=== PATIENT | female | born 1995 | race American Indian/Alaskan Native ===

== ENCOUNTER 2016-07-26 18:30 | Emergency (ER) | payer MEDICAID ==
[2016-07-27 01:42] VITALS: BP 107/76
[2016-07-27] MEDS: PEPCID PO ONE (02:44)
[2016-07-27] MEDS: ATARAX PO ONE (03:45)
--- NOTE | 2016-07-27 03:49 | Emergency Department Report ---
HPI - General Chief Complaint: Allergic Reaction Time Seen by Provider: 07/27/16 02:19 - HPI HPI: 21-year-old female presents today with face, hands, feet swelling since last night. Patient thinks she is allergic to the pepper she had last night. Positive for pruritus. Also complaining of a rash forming on her face spreading to her trunk 2 average. Denies difficulty in breathing or difficulty swallowing. Positive for history of allergic reaction to Benadryl and penicillin. Denies fever, chills, nausea, vomiting, chest pain, shortness of breath, abdominal pain. ED Past Medical Hx - Past Medical History Previous Medical History?: No - Surgical History Past Surgical History?: No - Social History Smoking Status: Never Smoker Substance Use Type: Alcohol - Medications Home Medications: Home Medications Medication Instructions Recorded Confirmed Last Taken Type Hydroxyzine HCl 10 mg PO QID #20 tablet 07/27/16 Unknown Rx Prednisone [predniSONE 10 mg 10 mg PO .TAPER #1 tab.ds.pk 07/27/16 Unknown Rx (6-Day Pack, 21 Tabs)] ED Review of Systems ROS: Stated complaint: ALLERGIC REACTION Other details as noted in HPI Constitutional: denies: chills, fever, malaise Eyes: denies: eye pain ENT: denies: ear pain, throat pain, congestion Respiratory: denies: cough, shortness of breath, wheezing Cardiovascular: denies: chest pain, palpitations Endocrine: no symptoms reported Gastrointestinal: denies: abdominal pain, nausea, vomiting Skin: rash, pruritus Neurological: denies: headache, weakness Physical Exam - Physical Exam Vital Signs: Vital Signs 07/26/16 07/27/16 19:43 01:42 Temperature 98.1 F 98.3 F Pulse Rate 105 H 98 H Respiratory 18 16 Rate Blood Pressure 114/77 Blood Pressure 114/77 107/76 [Left] O2 Sat by Pulse 100 100 Oximetry Physical Exam: GENERAL: The patient is well-developed and well-nourished. Patient is in NAD. SKIN: Erythematous, blanching, wheal-like rash noticed over her cheeks and chin spreading to her neck and back. HEAD: Normocephalic. Atraumatic. EYES: PERRL. NOSE: Normal nasal mucosa with no nasal discharge. THROAT: No erythema, swelling or exudates. NECK: Supple, nontender, without lymphadenopathy. No meningitic signs are noted. CHEST/LUNGS: Clear to auscultation throughout. HEART/CARDIOVASCULAR: Regular rate and rhythm. ABDOMEN: Abdomen is soft, nontender. No guarding or rebound tenderness. EXTREMITIES: Full range of motion. No cyanosis, clubbing or edema. Peripheral pulses intact. Capillary refill less than 2 seconds. NEURO: Alert and oriented x 3. Normal gait. ED Course Vital Signs 07/26/16 07/27/16 19:43 01:42 Temperature 98.1 F 98.3 F Pulse Rate 105 H 98 H Respiratory 18 16 Rate Blood Pressure 114/77 Blood Pressure 114/77 107/76 [Left] O2 Sat by Pulse 100 100 Oximetry ED Medical Decision Making - Lab Data Vital Signs 07/26/16 07/27/16 19:43 01:42 Temperature 98.1 F 98.3 F Pulse Rate 105 H 98 H Respiratory 18 16 Rate Blood Pressure 114/77 Blood Pressure 114/77 107/76 [Left] O2 Sat by Pulse 100 100 Oximetry - Medical Decision Making 21-year-old female presents today with a possible allergic reaction. Patient was given Solu-Medrol, Pepcid and hydroxyzine. Patient reported symptomatic relief post medication. Patient is in no acute distress at this time. She will be discharged home and is encouraged to follow up with a primary care provider. She will be sent home on hydroxyzine and steroid pack and is encouraged to return to the emergency room for any worsening symptoms. Critical care attestation.: If time is entered above; I have spent that time in minutes in the direct care of this critically ill patient, excluding procedure time. ED Disposition Clinical Impression: Pruritus and related conditions Allergic reaction Qualifiers: Encounter type: initial encounter Qualified Code(s): T78.40XA - Allergy, unspecified, initial encounter Disposition: DISCHARGED TO HOME OR SELFCARE Is pt being admited?: No Does the pt Need Aspirin: No Condition: Stable Instructions: Urticaria (ED), Allergies (ED), Anaphylaxis (ED) Additional Instructions: Follow-up with primary care provider. Return to the emergency department if symptoms worsen. Prescriptions: Hydroxyzine HCl 10 mg PO QID #20 tablet Prednisone [predniSONE 10 mg (6-Day Pack, 21 Tabs)] 10 mg PO .TAPER #1 tab.ds.pk Referrals: HALLIE BENTLEY MD [Primary Care Provider] - 3-5 Days [facility] [Outside] - 3-5 Days Forms: Work/School Release Form(ED), Accompanied Note Time of Disposition: 03:49
== END 2016-07-27 04:00 | disposition home or self-care (01) ==
LOC: ED 18:30
DX: T78.40XA Allergy, unspecified, initial encounter (principal); L29.9 Pruritus, unspecified
CPT/HCPCS: 96372; 99282; J2930